=== PATIENT | male | born 1945 | race Caucasian/White ===

== ENCOUNTER 2017-10-15 17:06 | Emergency (ER) | payer MEDICARE, MEDICAID, SELFPAY ==
[2017-10-15 17:07] VITALS: BP 139/64; PULSE 53; RESP 20; TEMP 35.8; O2SAT 100; BMI 27.6
[2017-10-15 17:45] LABS: Absolute Lymphocyte Count 1.51 X10^3/ul (0.83-4.51); Absolute Neutrophil Count 7.9 X10^3/uL (2.0-7.7); Basophil# 0.03 X10^3/uL; Basophil% 0.3 % (0-1); Eosinophil# 0.04 X10^3/uL; Eosinophils% 0.4 % (0-5); Hematocrit 43.9 % (40-54); Hemoglobin 14.1 g/dl (13.0-16.5); Lymphocyte # 1.51 X10^3/ul (4.0); Lymphocyte % 14.9 % (19-41); Mean Corp Hgb Conc 32.1 g/gl (32-36); Mean Corpuscular Hgb 29.8 pg (27.0-32.0); Mean Corpuscular Volume 92.8 fL (80-94); Mean Platelet Vol. 12.8 fl (6.2-12.0); Monocyte# 0.68 X10^3/uL; Monocyte% 6.7 % (0-10); Neutrophil # 7.88 X10^3/uL (2.7-7.7); Neutrophil % 77.6 % (47-70); Platelet Count 157 K/mm3 (150-450); RBC Distribution Width CV 13.4 % (11.6-14.6); RBC Distribution Width SD 44.2 fl (35.1-43.9); Red Blood Count 4.73 M/mm3 (4.6-6.2); White Blood Count 10.2 K/mm3 (4.4-11.0)
[2017-10-15 17:48] LABS: Anion Gap 10 (5-15); BUN 33 mg/dL (7-18); BUN/Creat Ratio 17.8 RATIO (10-20); Calcium,Total 9.6 mg/dL (8.5-10.1); Chloride 108 mmol/L (98-107); Creatinine, Serum 1.85 mg/dL (0.70-1.30); EST Glomerular Filtration Rate 39 mL/min (>60); Est Glom Filt Rate - Afr Amer 47 mL/min (>60); Estimated Creatinine Clearance 34.01 ml/min; Glucose 110 mg/dL (74-106); Potassium 4.2 mmol/L (3.5-5.1); Sodium Level 143 mmol/L (136-145)
[2017-10-15 17:49] LABS: POSITIVE COUNT NO; POSITIVE DIFFERENTIAL NO; POSITIVE MORPHOLOGY NO
[2017-10-15 18:00] LABS: White Blood Cells 0 SEEN /hpf (0-5)
[2017-10-15 18:12] LABS: Color, Urine Yellow (Yellow); Glucose, Dipstick Normal (Normal); Leukocyte Esterase-Dipstick Negative /ul (Negative); Nitrite-Dipstick Negative (Negative); Occult Blood-Urine 10 /ul (Negative); Protein-Dipstick 15 mg/dl (Negative); Urine Bilirubin Dipstick Negative (Negative); Urine Clarity Clear (Clear); Urine Urobilinogen Normal (Normal)
[2017-10-15] MEDS: Ondansetron 4 MG/2 ML Vial IV (18:13)
[2017-10-15] MEDS: Morphine 4 MG/ML Syringe IV (18:13)
[2017-10-15 18:15] LABS: Ketone-Dipstick 150 mg/dl (Negative)
[2017-10-15 18:15] LABS: Lipase 295 U/L (73-393)
[2017-10-15 18:36] LABS: Bacteria RARE /hpf (None Seen); Mucous, Urine RARE /hpf (<or=2+); Red Blood Cells-Urine 0-5 SEEN /hpf (0-5); Squamous Epithelial Cells - UA 0-5 SEEN /hpf (0-5)
--- NOTE | 2017-10-15 19:13 | EKG12_ITS ---
Test Reason : ABD PAIN Blood Pressure : / mmHG Vent. Rate : 049 BPM Atrial Rate : 049 BPM P-R Int : 156 ms QRS Dur : 078 ms QT Int : 478 ms P-R-T Axes : 068 015 110 degrees QTc Int : 431 ms Sinus bradycardia Septal infarct , age undetermined Inferior infarct , age undetermined ST & T wave abnormality, consider lateral ischemia Abnormal ECG Confirmed by MAGDALENA LANZA, SUNIL ([id number]), online content editor KRISTEN LARKIN ([id number]) on 10/19/2017 2:00:39 PM Referred By: ARINA MAYA Confirmed By:SUNIL NICHOLS MD
[2017-10-15 19:29] LABS: AST(SGOT) 21 U/L (15-37); Alanine Aminotransfer ALT/SGPT 20 U/L (16-61); Albumin, Serum 4.5 g/dL (3.2-5.0); Alkaline Phosphatase 71 U/L (45-117); Bilirubin, Direct 0.13 mg/dL (0.00-0.30); Globulin 3.9 g/dL (2.2-4.2); Protein, Total 8.4 g/dL (6.4-8.2)
[2017-10-15] MEDS: proMETHazine 25 MG/ML Syringe 6.25 MG IV (19:48)
[2017-10-15 19:51] VITALS: BP 134/80; PULSE 60; RESP 16; O2SAT 94
--- NOTE | 2017-10-15 23:06 | ED.VISSUMM ---
- ER Visit Summary Date of Service: 10/15/17 Chief Complaint: Abdominal pain History of Present Illness: The patient is a 71 M who presents with right upper quadrant and epigastric abdominal pain that began today. Patient describes the pain as burning and pressure. Patient states the pain is worse with eating. Patient admits to some nausea and vomiting. Patient had 2 episodes of emesis of undigested food. Patient does admit to some watery diarrhea today as well. Denies any dysuria or hematuria. Patient denies any radiation of his pain. Patient denies any chest pain or shortness of breath. Patient denies any headaches. Physical Examination: Vital signs are stable. Patient is afebrile. Patient is in no acute distress. Oral mucosa is pink and moist. Neck is supple. Trachea is midline. There is no JVD or lymphadenopathy. Heart was regular rate and rhythm. Lungs are clear and equal bilateral. There is good respiratory effort noted. Abdomen is soft. There is tenderness over the upper abdomen slightly worse on the right. Bowel sounds are normal. There is no rebound or guarding noted. Cranial nerves II through XII are intact. There are no focal motor or sensory deficits noted. Test Results: CBC was within normal limits. Basic metabolic profile shows slightly elevated creatinine of 1.85 and a BUN of 33. This is chronic for the patient. Urinalysis was within normal limits. EKG showed sinus bradycardia with a rate of 49. There are no acute ST or T-wave changes noted. There is no change compared to previous EKG dated 12/30/2015. Emergency Department Course and Treatment: Patient was given a GI cocktail initially and had minimal relief. Patient was also given Zofran initially. Patient was given morphine and Phenergan after this. Patient was advised that his pain is likely from gastritis or early ulcer or possibly cholelithiasis. Patient was instructed to follow-up with his primary care physician in 3-5 days. Patient was given a prescription for a short course of [place]. Patient understood and was agreeable with the plan. All questions were answered. Disposition: Discharge home Impression: Upper abdominal pain This note was generated with [employer] dictation software. It may contain incorrect words, spelling, and punctuation that were not noted in review of the chart prior to signing ED Disposition - Plan for ED Patient: Disposition: Home or Assisted Living Chief Complaint: Abd Pain Diagnosis: Upper abdominal pain, unspecified Instructions: ED Abdominal Pain Unkn Cause Prescriptions: Hydrocodone Bitart/Apap 5-325 [[place] 5/325] 1 tab PO Q6H PRN PRN 3 Days #12 tab PRN Reason: Pain Referrals: Stef Houston MD [Primary Care Provider] -
[2017-10-15 23:25] VITALS: BP 150/91; PULSE 65; RESP 16
[2017-10-15] MEDS: Morphine 2 MG/ML Syringe IV (23:25)
[2017-10-15 23:55] VITALS: BP 151/82; PULSE 59; RESP 16
== END 2017-10-15 23:56 | disposition home or self-care (01) ==
PROVIDERS: Emergency Medicine; Emergency Provider Emergency Medicine; Family Provider Family Medicine; PCP Family Medicine
DX: R10.13 Epigastric pain (principal); R10.11 Right upper quadrant pain; R00.1 Bradycardia, unspecified; R11.2 Nausea with vomiting, unspecified; R19.7 Diarrhea, unspecified; I25.10 Atherosclerotic heart disease of native coronary artery without angina pectoris; K21.9 Gastro-esophageal reflux disease without esophagitis; Z95.1 Presence of aortocoronary bypass graft; Z79.899 Other long term (current) drug therapy
CPT/HCPCS: 80048; 80076; 81001; 83690; 84484; 85025; 93005; 96374; 96375; 96376; 99285; A4216; J2405

== ENCOUNTER 2021-04-12 11:29 | Emergency (ER) | payer MEDICARE, MEDICAID, SELFPAY ==
[2021-04-12 11:30] VITALS: BP 120/82; PULSE 83; RESP 16; TEMP 36.6; O2SAT 97; BMI 26.9
--- NOTE | 2021-04-12 12:27 | RAD_ITS ---
HISTORY: cough. TECHNIQUE: XR Chest 1 View. # of images incl. paperwork: 1. COMPARISON: 12/30/2015. FINDINGS: CARDIOMEDIASTINAL STRUCTURES: Cardiac silhouette not enlarged. Mediastinal contour unremarkable. Midline sternotomy again noted. LUNGS: Mild linear and patchy opacities in the mid to lower lungs. PLEURA: No pleural effusion or pneumothorax. OSSEOUS STRUCTURES: Degenerative change. RAD/Chest 1 View (Portable) IMPRESSION: Mild opacities in the periphery of the mid to lower lungs, concerning for atypical or viral infection. at 1345 Reported and signed by: Nanci Rutledge MD Electronically Signed: Nanci Rutledge MD at 13:43 EDT Tel , Service support ,
--- NOTE | 2021-04-12 12:31 | EDS_ITS ---
HPI History of Present Illness Chief Complaint: Cough Informant: patient Narrative Narrative: Patient presents with about 2 weeks of symptoms. He started with some nasal congestion. He then developed a cough that is been nonproductive. He has never had chest pain. His taste and smell are poor. His appetite is poor but no nausea vomiting. He has had some intermittent soft stools without blood. No abdominal pain. Slight myalgias. He states he is just not getting a lot better. He is not a smoker. He has not been checked for Covid. He has not been immunized against Covid. He states his is worse than him but he figured he get checked to. Nothing specifically makes his symptoms better and worse. PFSH PFSH Home Medications hydrocodone-acetaminophen 1 tab PO Q6H PRN PRN 3 Days #12 tab 10/15/17 [Rx Last Taken Unknown] omeprazole 20 mg PO DAILY 10/15/17 [History Last Taken Unknown] Allergy/AdvReac Type Severity Reaction Status Date / Time No Known Allergies Allergy Verified 04/12/21 11:30 Surgical History History of quadruple bypass Social History Smoking Status: Never smoker ROS ROS ED Constitutional Constitutional ED: Reports chills and subjective Eyes Eyes: Denies blurry vision or change in vision ENT ENT ED: Reports rhinorrhea; Denies ear pain or sore throat Cardiovascular Cardiovascular: Denies chest pain or palpitations Respiratory/Chest Respiratory/Chest: Reports cough and dyspnea; Denies sputum Gastrointestinal Gastrointestinal: Reports diarrhea; Denies abdominal pain, nausea or vomiting Genitourinary Genitourinary ED: Denies dysuria or hematuria Musculoskeletal Musculoskeletal: Reports myalgias; Denies arthralgias, back pain or neck pain Integumentary Denies rash Neurologic Neurologic: Denies headache(s) Psychiatric Psychiatric: Denies anxiety or depression Endocrine Endocrinology: Denies polydipsia or polyuria Allergic/Immunologic Allergic/Immunologic ED: Denies urticaria EXAM Physical Exam Const Vital Signs: 04/12/21 11:30 04/12/21 12:45 04/12/21 14:12 Temperature 98 F 100.4 F H Temperature Source Temporal Oral Pulse Rate 83 80 75 Respiratory Rate 16 26 H Respiratory Effort Short of Breath Respiratory Depth Normal Respiratory Pattern Tachypnea Blood Pressure 120/82 H 123/86 H 131/83 H Blood Pressure Mean 94 98 99 Pulse Ox 97 95 96 Oxygen Delivery Method Room Air Room Air Room Air Positive well nourished and well developed General Appearance ED: well developed and NAD HEENT Reports moist mucous membranes Negative for trauma Eyes General Eye ED: Negative for pale conjunctiva or scleral icterus Neck no lymphadenopathy and no JVD Resp normal respiratory effort and clear to auscultation bilaterally Effort and Inspection: Negative for pain with movement Auscultation: Negative for rales, rhonchi or wheezes Cardio regular rate, regular rhythm and no murmurs GI normal to inspection, nondistended, normoactive bowel sounds and non-tender Palpation: soft Back/Spine no CVA tenderness Extremity normal to inspection General Extremety ED: Negative for edema General Extremity: Negative for edema Neuro oriented x3 Sensorium / Orientation: alert Psych mental status grossly normal Skin no rashes or lesions noted and no wounds MDM MDM MDM Narrative Medical decision making narrative: Patient's labs show low white count. This is common with Covid. His Covid is positive. He does have mild elevation in creatinine 1.9. Lactate is normal. Liver function tests are unremarkable. X- ray is consistent with some Covid. However the patient is not hypoxic including when he walked. His mild elevation of creatinine is really at his baseline. I think the patient can go home. He has symptoms about 14 days now. He is doing well. We did discuss reasons to follow-up. He has been having symptoms too long for monoclonal therapy. Lab Data Attestation: I reviewed the patient's lab results. Labs: Laboratory Results - last 24 hr 04/12/21 04/12/21 04/12/21 12:35 12:35 12:35 WBC 3.2 L RBC 4.80 Hgb 14.4 Hct 44.7 MCV 93.1 MCH 30.0 MCHC 32.2 RDW Std Deviation 46.0 H RDW Coeff of Rc 13.3 Plt Count 93 L MPV 11.5 Immature Gran % (Auto) 0.300 Neut % (Auto) 63.9 Lymph % (Auto) 25.3 [place] % (Auto) 9.9 Eos % (Auto) 0.3 Baso % (Auto) 0.3 Absolute Neuts (auto) 2.1 Absolute Lymphs (auto) 0.82 L Nucleated RBC % 0 Platelet Estimate MOD DEC Sodium 135 L Potassium 4.7 Chloride 98 Carbon Dioxide 30.0 Anion Gap 7 BUN 29 H Creatinine 1.90 H Estim Creat Clear Calc 31.25 Est GFR (MDRD) Af Amer 45 L Est GFR (MDRD) Non-Af 37 L BUN/Creatinine Ratio 15.3 Glucose 96 Lactic Acid 0.9 Calcium 8.6 Total Bilirubin 0.40 AST 37 ALT 22 Alkaline Phosphatase 46 Troponin I High Sens 29 Total Protein 7.3 Albumin 3.2 Globulin 4.1 Albumin/Globulin Ratio 0.8 L Radiography Diagnostic Testing: Clinical Impression(s) from Imaging Studies Chest X-Ray 04/12/21 12:27 IMPRESSION: Mild opacities in the periphery of the mid to lower lungs, concerning for atypical or viral infection. at 1345 Reported and signed by: Nanci Rutledge MD Electronically Signed: Nanci Rutledge MD at 13:43 EDT Tel , Service support , Discharge Plan Triage Chief Complaint: Cough ED Provider: Aleksander Gil Dx/Rx/DC Orders Clinical Impression: Pneumonia due to 2019 novel coronavirus Instructions: Caring for Someone Who Has COVID-19 Prescriptions: No Action omeprazole 20 MG capsule 20 mg PO DAILY RF: 0 hydrocodone-acetaminophen 1 TABLET tablet 1 tab PO Q6H PRN PRN (Reason: Pain) 3 Days Qty: 12 RF: 0 Primary Care Provider: Stef Houston Referrals: Stef Houston MD [Primary Care Provider] - 3-5 Days if not improving Disposition Disposition: Home, Self Care Discharge Date/Time: 04/12/21 14:46
[2021-04-12 12:45] VITALS: BP 123/86; PULSE 80; O2SAT 95
[2021-04-12 12:45] LABS: Absolute Lymphocyte Count 0.82 X10^3/uL (0.83-4.51); Absolute Neutrophil Count 2.1 X10^3/uL (2.0-7.7); Basophil# 0.01 X10^3/uL; Basophil% 0.3 % (0-1); Eosinophil# 0.01 X10^3/uL; Eosinophils% 0.3 % (0-5); Hematocrit 44.7 % (40-54); Hemoglobin 14.4 g/dL (13.0-16.5); Lymphocyte # 0.82 X10^3/ul (0.83-4.51); Lymphocyte % 25.3 % (19-41); Mean Corp Hgb Conc 32.2 g/dL (32-36); Mean Corpuscular Volume 93.1 fL (80-94); Mean Platelet Vol. 11.5 fl (6.2-12.0); Monocyte# 0.32 X10^3/uL; Monocyte% 9.9 % (0-10); NRBC Flagged by Analyzer 0 % (0-5); Neutrophil # 2.07 X10^3/uL (2.7-7.7); Neutrophil % 63.9 % (47-70); POSITIVE COUNT YES; Platelet Count 93 K/mm3 (150-450); RBC Distribution Width CV 13.3 % (11.6-14.6); White Blood Count 3.2 K/mm3 (4.4-11.0)
[2021-04-12 12:47] LABS: Differential Indicated SCAN CRITERIA MET
[2021-04-12 13:05] LABS: ALB/GLOB Ratio 0.8 RATIO (0.9-2.4); AST(SGOT) 37 U/L (15-37); Alanine Aminotransfer ALT/SGPT 22 U/L (16-61); Albumin, Serum 3.2 g/dL (3.2-5.0); Alkaline Phosphatase 46 U/L (45-117); Anion Gap 7 (5-15); BUN 29 mg/dL (7-18); BUN/Creat Ratio 15.3 RATIO (10-20); Calcium,Total 8.6 mg/dL (8.5-10.1); Chloride 98 mmol/L (98-107); EST Glomerular Filtration Rate 37 mL/min (>60); Est Glom Filt Rate - Afr Amer 45 mL/min (>60); Estimated Creatinine Clearance 31.25 ml/min; Globulin 4.1 g/dL (2.2-4.2); Glucose 96 mg/dL (74-106); Potassium 4.7 mmol/L (3.5-5.1); Protein, Total 7.3 g/dL (6.4-8.2); Sodium Level 135 mmol/L (136-145); Troponin-I HS 29 pg/mL (3.0-78.0)
[2021-04-12 13:08] LABS: Lactic Acid 0.9 mmol/L (0.4-1.9)
[2021-04-12 13:11] LABS: Platelet Estimate MOD DEC (ADEQ)
[2021-04-12 14:12] VITALS: BP 131/83; PULSE 75; RESP 26; TEMP 38; O2SAT 95; O2SAT 96
[2021-04-12] MEDS: Acetaminophen 325 MG Tablet 650 MG PO (14:41)
== END 2021-04-12 14:46 | disposition home or self-care (01) ==
PROVIDERS: Emergency Provider Emergency Medicine; PCP Family Medicine
DX: U07.1 COVID-19 (principal); J12.82 Pneumonia due to coronavirus disease 2019; Z95.1 Presence of aortocoronary bypass graft
CPT/HCPCS: 71045; 80053; 83605; 84484; 85025; 87426; 99284; A4216

== ENCOUNTER 2023-09-16 09:06 | Emergency (ER) | payer MEDICARE, MEDICAID, SELFPAY ==
[2023-09-16 09:07] VITALS: BP 152/104; PULSE 81; RESP 14; TEMP 37.2; O2SAT 96; BMI 28.4
--- NOTE | 2023-09-16 09:14 | EX.ED.VIS.UR ---
HPI HPI - URI History of Present Illness Chief Complaint: Cough Informant: patient Onset/Context/Timing Onset: Weeks (2-3) Context: Gradual Onset Timing: Continuous Quality: Weakness Location: Generalized Worsened by: - (Exertion) Relieved by: - (Nothing) Associated Symptoms Associated Symptoms: Positive for Nasal Congestion, Headache and Productive Cough; Negative for Sinus Pressure, Myalgias, Nausea, Vomiting, Diarrhea, Shortness of Breath, Chest Pain, Nonproductive cough or Hemoptysis Narrative Narrative: Patient presents with generalized weakness, and cough that has been constant for the past 2 to 3 weeks. Patient states he went to the urgent care and had a chest x-ray done. Patient states he was given a prescription for doxycycline. Patient states he took 1 dose and had a reaction to it. Patient states it gave him a weird feeling . Patient states he stopped taking it after that. Patient admits to a cough with some yellowish sputum production. Patient also admits to headache and some nasal congestion. Patient denies any fevers or chills. Patient states his weakness is worse with any exertion. Patient admits to some shortness of breath with coughing. Patient denies any chest pain. ROS ROS ED Constitutional Constitutional ED: Denies chills or fever(s) Eyes Eyes: Denies blurry vision or change in vision ENT ENT ED: Reports rhinorrhea; Denies sore throat Cardiovascular Cardiovascular: Denies chest pain or palpitations Respiratory/Chest Respiratory/Chest: Reports cough and dyspnea Gastrointestinal Gastrointestinal: Denies nausea or vomiting Genitourinary Genitourinary ED: Denies dysuria or hematuria Musculoskeletal Musculoskeletal: Denies back pain or neck pain Integumentary Denies abscess or rash Neurologic Neurologic: Reports headache(s) and weakness Allergic/Immunologic Allergic/Immunologic ED: Denies mouth swelling or urticaria [facility] Medical History (Updated 09/16/23 @ 12:[address] Mj Ralph DO) Benign essential hypertension CAD (coronary artery disease) Home Medications NK 09/16/23 [History Last Taken Unknown] Allergy/AdvReac Type Severity Reaction Status Date / Time No Known Allergies Allergy Verified 09/16/23 09:07 Surgical History (Updated 09/16/23 @ 10:[address] Mj Ralph DO) History of coronary artery stent placement History of quadruple bypass Hx of CABG Social History Smoking Status: Never smoker EXAM Physical Exam Const Vital Signs: 09/16/23 09:07 09/16/23 09:33 09/16/23 10:21 Temperature 98.9 F Temperature Source Temporal Pulse Rate 81 70 Respiratory Rate 14 16 Respiratory Effort Normal Non-Labored Respiratory Depth Normal Respiratory Pattern Normal Normal Blood Pressure 152/104 H Blood Pressure Mean 120 Pulse Ox 96 Oxygen Delivery Method Room Air 09/16/23 11:21 Temperature 98.2 F Temperature Source Pulse Rate 72 Respiratory Rate 16 Respiratory Effort Respiratory Depth Respiratory Pattern Blood Pressure 149/90 H Blood Pressure Mean 109 Pulse Ox 96 Oxygen Delivery Method Positive well nourished and well developed General Appearance ED: well developed and NAD HEENT Reports moist mucous membranes Neck supple, no meningeal signs and no JVD Resp normal respiratory effort and clear to auscultation bilaterally Cardio Rate: regular rate GI non-tender and non-distended Palpation: soft Neuro oriented x3, CN's II-XII intact bilaterally and no sensory deficits noted Sensorium / Orientation: alert Motor Exam: strength 5/5 throughout Psych mental status grossly normal MDM MDM MDM Narrative Medical decision making narrative: Differential diagnosis includes pneumonia, bronchitis, viral upper respiratory infection, and electrolyte abnormality. CBC will be obtained to assess for leukocytosis and anemia. Basic metabolic profile will be obtained to assess for electrolyte abnormality and renal function. COVID-19, influenza, and RSV PCR will be obtained to assess for viral infection. Chest x-ray will be obtained to assess for pneumonia. Lab Data Attestation: I reviewed the patient's lab results. Lab results narrative: CBC was reviewed. There is a slight anemia with a hemoglobin of 12.0 and hematocrit 38.0. Basic metabolic profile was reviewed. BUN was slightly elevated at 36 and creatinine was slightly elevated at 1.76. These are consistent with prior results. COVID-19 PCR was reviewed and was negative. Influenza PCR was reviewed and was negative for influenza A and influenza B. RSV PCR was reviewed and was negative. Labs: Laboratory Results - last 24 hr 09/16/23 10:20 WBC 7.6 RBC 4.16 L Hgb 12.0 L Hct 38.0 L MCV 91.3 MCH 28.8 MCHC 31.6 L RDW Std Deviation 48.6 H RDW Coeff of Rc 14.8 H Plt Count 194 MPV 10.9 Immature Gran % (Auto) 0.400 Neut % (Auto) 75.3 H Lymph % (Auto) 12.3 L [place] % (Auto) 7.1 Eos % (Auto) 4.1 Baso % (Auto) 0.8 Absolute Neuts (auto) 5.7 Absolute Lymphs (auto) 0.93 Nucleated RBC % 0 Sodium 141 Potassium 4.0 Chloride 108 H Carbon Dioxide 26.0 Anion Gap 7 BUN 36 H Creatinine 1.76 H Estim Creat Clear Calc 36.05 Est GFR (MDRD) Af Amer 49 L Est GFR (MDRD) Non-Af 40 L BUN/Creatinine Ratio 20.5 H Glucose 104 Calcium 8.9 Radiography Chest X-Ray - ED: 2 View, Read by ED Physician, Read by Radiologist, No Acute Disease, Cardiomegaly and No Infiltrates Diagnostic Testing: Clinical Impression(s) from Imaging Studies Chest X-Ray 09/16/23 10:25 IMPRESSION: Cardiomegaly. Prior CABG. No acute abnormality is seen. Electronically Signed: Jarett Oates MD at 10:53 EDT , Portable 1 view chest x-ray was obtained. On my independent interpretation, lung patel are clear. There is cardiomegaly noted. Bony thorax is normal. There is no acute process noted. Radiologist also interpreted the x-ray and agrees. Treatment and Re-Evaluation Narrative: Patient was given a DuoNeb aerosol here. Patient was advised of his findings. Patient was advised that this could be a viral illness. Patient was instructed to follow-up with his primary care physician for further evaluation. Patient understood and was agreeable with the plan. All questions were answered. Discharge Plan Triage Chief Complaint: Cough ED Provider: Mj Ralph Dx/Rx/DC Orders Clinical Impression: Viral illness, Benign essential hypertension Instructions: ED Viral Syndrome (Adult) Prescriptions: No Action NK Primary Care Provider: Guillaume Aparicio Referrals: Guillaume Aparicio MD [Primary Care Provider] - 5-7 Days Stef Houston MD [Non-Staff] - 5-7 Days Disposition Disposition: Home, Self Care
[2023-09-16] MEDS: Ipratropium/Albuterol Sulfate 3 ML AMPUL.NEB INHALATION (10:20)
[2023-09-16 10:21] VITALS: PULSE 70; RESP 16
--- NOTE | 2023-09-16 10:25 | RAD_ITS ---
STUDY: X-RAY CHEST REASON FOR EXAM: Male, 77 years old. Cough TECHNIQUE: PA and lateral views of the chest. COMPARISON: Comparison is made with prior study dated April 12, 2021. FINDINGS: EKG electrodes are seen. The lungs are clear and expanded. There is no demonstrated pleural abnormality. Sternal cerclage wires and vascular clips are present from a prior sternotomy and coronary artery bypass graft procedure (CABG). Cardiomegaly. Normal mediastinum and titus. Normal visualized pulmonary arteries. There is atherosclerotic tortuosity of the aortic arch and descending thoracic aorta. There is demineralization of the osseous structures. Normal visualized ribs, clavicles, and shoulders. There is no demonstrated abnormality of the visualized soft tissue structures of the upper abdomen. RAD/Chest PA and Lateral IMPRESSION: Cardiomegaly. Prior CABG. No acute abnormality is seen. Electronically Signed: Jarett Oates MD at 10:53 EDT ,
[2023-09-16 10:33] LABS: Absolute Lymphocyte Count 0.93 X10^3/uL (0.83-4.51); Absolute Neutrophil Count 5.7 X10^3/uL (2.0-7.7); Basophil# 0.06 X10^3/uL; Basophil% 0.8 % (0-1); Eosinophil# 0.31 X10^3/uL; Eosinophils% 4.1 % (0-5); Lymphocyte # 0.93 X10^3/ul (0.83-4.51); Lymphocyte % 12.3 % (19-41); Mean Corp Hgb Conc 31.6 g/dL (32-36); Mean Corpuscular Hgb 28.8 pg (27.0-32.0); Mean Corpuscular Volume 91.3 fL (80-94); Mean Platelet Vol. 10.9 fl (6.2-12.0); Monocyte# 0.54 X10^3/uL; Monocyte% 7.1 % (0-10); NRBC Flagged by Analyzer 0 % (0-5); Neutrophil # 5.71 X10^3/uL (2.7-7.7); Neutrophil % 75.3 % (47-70); Platelet Count 194 K/mm3 (150-450); RBC Distribution Width CV 14.8 % (11.6-14.6); RBC Distribution Width SD 48.6 fl (35.1-43.9); Red Blood Count 4.16 M/mm3 (4.6-6.2); White Blood Count 7.6 K/mm3 (4.4-11.0)
[2023-09-16 10:55] LABS: Anion Gap 7 (5-15); BUN 36 mg/dL (7-18); BUN/Creat Ratio 20.5 RATIO (10-20); Calcium,Total 8.9 mg/dL (8.5-10.1); Chloride 108 mmol/L (98-107); Creatinine, Serum 1.76 mg/dL (0.70-1.30); EST Glomerular Filtration Rate 40 mL/min (>60); Est Glom Filt Rate - Afr Amer 49 mL/min (>60); Estimated Creatinine Clearance 36.05 ml/min; Glucose 104 mg/dL (74-106); Sodium Level 141 mmol/L (136-145)
[2023-09-16 11:21] VITALS: BP 149/90; PULSE 72; RESP 16; TEMP 36.8; O2SAT 96
== END 2023-09-16 12:23 | disposition home or self-care (01) ==
PROVIDERS: Emergency Provider Emergency Medicine; PCP Family Medicine; Visit Provider Emergency Medicine
DX: B34.9 Viral infection, unspecified (principal); I10 Essential (primary) hypertension; R06.02 Shortness of breath
CPT/HCPCS: 71046; 80048; 85025; 87631; 94640; 99283; A4216

== ENCOUNTER 2025-06-20 14:15 | Inpatient (IN) | payer MEDICARE, MEDICAID, SELFPAY ==
[2025-06-20] VITALS (15 sets, daily range): BP systolic 122–152; BP diastolic 83–106; PULSE 55–75; RESP 16–24; TEMP 35.9–36.7; O2SAT 94–100; BMI 29.7
--- NOTE | 2025-06-20 15:29 | EX.ED.DYSGE1 ---
HPI History of Present Illness Chief Complaint: Abd Pain Detail of Chief Complaint: Right inguinal pain Informant: patient and spouse/S.O. Onset/Context/Timing Onset: Today and Hours Context: Sudden Onset Timing: Continuous Quality: Pain Location: Right inguinal Current Severity: Moderate Maximum Severity: Severe Worsened by: Movement and palpation Relieved by: Nothing Associated Symptoms Associated Symptoms: No constitutional symptoms. No nausea or vomiting. Constipation Narrative Narrative: Patient is a 79-year-old male. He has history coronary disease status post multivessel bypass surgery 2011. He had a acute ST elevation LA in 2016 transferred to [place]. He apparently had another LA in the 20s based on review of records that I was able to obtain. There is no prior echo report. Patient states he was told by his reimbursement analyst it is up to him whether he wants surgery. He was told by his surgeon, Dr. Cortez Velazquez there is risk because of enlarged heart. Patient denies fever, chills night sweats. Patient denies dysuria, frequency, urgency or hematuria. Patient was seen by practitioner with Dr. Teran's office today for routine exam. After he got home he developed severe pain. He states he is unable to push the hernia in. He is normally able to reduce it. He has no complaints. Prior similar symptoms: No Recent Illness/Hospitalization: No PFSH PFSH Medical History Benign essential hypertension CAD (coronary artery disease) Home Medications ?Medication ?Instructions ?Recorded ?Last Taken ?Type furosemide 20 mg tablet 20 mg PO BID 06/20/25 06/20/25 History Allergy/AdvReac Type Severity Reaction Status Date / Time No Known Allergies Allergy Verified 06/20/25 14:17 Family History no significant family his Surgical History History of quadruple bypass History of coronary artery stent placement Hx of CABG Social History (Updated 06/20/25 @ 15:[address] Kirk Espinosa MD) household members: spouse Smoking Status: Never smoker ROS ROS ED Constitutional Constitutional ED: Denies chills, fever(s), subjective, sweats or weight loss Eyes Eyes: Denies blurry vision or change in vision Cardiovascular Cardiovascular: Denies chest pain or palpitations Respiratory/Chest Respiratory/Chest: Denies cough, dyspnea or dyspnea on exertion Gastrointestinal Gastrointestinal: Reports abdominal pain and constipation; Denies diarrhea, melena, nausea or vomiting Genitourinary Genitourinary ED: Denies dysuria, hematuria or urinary frequency Musculoskeletal Musculoskeletal: Denies arthralgias, back pain or myalgias Integumentary Denies rash Neurologic Neurologic: Denies headache(s) or paresthesias Hematologic/Lymphatic Hematologic/Lymphatic: Reports systems reviewed and no addt'l complaints, except as documented EXAM Physical Exam Const Vital Signs: 06/20/25 14:16 06/20/25 15:48 Temperature 97.4 F L 97.4 F L Temperature Source Temporal Pulse Rate 74 61 Respiratory Rate 24 H 24 H Blood Pressure 134/83 H 122/90 H Blood Pressure Mean 100 100 Pulse Ox 96 96 Oxygen Delivery Method Room Air Positive well nourished and well developed General Appearance ED: well developed and pallor HEENT Reports dry mucous membranes HEENT Narrative: Head is atraumatic normocephalic. Ears normal. Nares patent. Mouth ED: Yes dry mucous membranes Mouth: dry mucous membranes Eyes PERRL and EOMs intact bilaterally General Eye ED: Negative for pale conjunctiva or scleral icterus Neck no lymphadenopathy, supple and no JVD Chest Wall palpation of chest normal; Negative for inspection of chest normal Chest Narrative: Well-healed median sternotomy scar. Resp normal respiratory effort and clear to auscultation bilaterally Cardio regular rate, regular rhythm, S1 normal heart sound, S2 normal heart sound and no murmurs GI non-distended and no masses; Negative for normal to inspection, nondistended, normoactive bowel sounds, non-tender or hepatosplenomegaly GI Narrative: Patient has a large right inguinal hernia with bowel content in the scrotum. Attempt to reduce this caused him significant pain. Since has been out for hours no further attempt was made. Narrative: exam unremarkable. As noted above there is gastric content in the scrotum due to a hernia. In my opinion it is incarcerated. Extremity normal to inspection Neuro oriented x3 and CN's II-XII intact bilaterally Sensorium / Orientation: alert Psych mental status grossly normal Skin no rashes or lesions noted, no wounds and No skin turgor normal General Skin Exam: pallor; Negative for jaundice MDM MDM MDM Narrative Medical decision making narrative: Patient with a right inguinal hernia patient has significant discomfort and been out for hours no further attempt was made because of concern there may be bowel ischemia. Appropriate blood work was ordered. He was ordered for Zofran for nausea and Dilaudid for his pain. Case was discussed with Dr. Donaldson. He will attempt to reduce it. Did ask regarding imaging if you would like with IV contrast or IV and p.o. Spoke with the nurse practitioner at the [facility] who saw him on behalf of Dr. Teran. Patient has an ejection fracture of 31%. He had an echo September of this year. He has got global hypokinesis. He had an exacerbation of CHF 1 month ago. History & Record Review Discussion w/independent historian: Significant other Additional record(s) reviewed:: Prior ED visit (Minimal records. Mainly related to cardiac presentations. Documented HPI narrative) and Prior labs Lab Data Attestation: I reviewed the patient's lab results. Lab results narrative: CBC is unremarkable. Labs: Laboratory Results - last 24 hr 06/20/25 14:45 WBC 4.8 RBC 4.48 L Hgb 13.6 Hct 42.7 MCV 95.3 H MCH 30.4 MCHC 31.9 L RDW Std Deviation 51.3 H RDW Coeff of Rc 14.7 H Plt Count 117 L MPV 11.5 Immature Gran % (Auto) 0.200 Neut % (Auto) 70.0 Lymph % (Auto) 17.4 L Whitley % (Auto) 10.3 H Eos % (Auto) 1.3 Baso % (Auto) 0.8 Absolute Neuts (auto) 3.3 Absolute Lymphs (auto) 0.83 Nucleated RBC % 0 Management Discussion w/another healthcare provider: Graduation Coach (Documented medical portion of the medical record.) and PCP (Documented MDM portion of the medical record) Treatment and Re-Evaluation :: Patient was seen by Dr. Donaldson. Plan is OR. Patient received 4.5 g of Zosyn. Patient is aware of the risks. Critical Care Time Critical Care Time: Yes Critical care time (excluding procedures): 30-74 minutes (21), Including time spent: (History, physical, documentation, review of prior records, discussion with PCP at [facility], discussion with surgeon,), Discussing w/Patient &/or Family/Public Relations Manager (Informed patient he has an emergent condition requiring operative intervention. He understands the risk.), Discussing w/Consultants (PCP and general surgery.), Arranging Admission or Transfer and Performing Direct Patient Care at Bedside (Attempt to reduce right inguinal hernia,) Discharge Plan Dx/Rx/DC Orders Clinical Impression: Incarcerated right inguinal hernia, CAD (coronary artery disease), Benign essential hypertension, History of coronary artery stent placement, History of chronic CHF, Tachypnea Disposition Disposition: Acute Care Hospital [facility]
[2025-06-20 15:32] LABS: Hematocrit 42.7 % (40-54); Hemoglobin 13.6 g/dL (13.0-16.5); Immature Granulocytes Count 0.010 X10^3/uL (0.0-0.0); Mean Corp Hgb Conc 31.9 g/dL (32-36); Mean Corpuscular Volume 95.3 fL (80-94); Mean Platelet Vol. 11.5 fl (6.2-12.0); NRBC Flagged by Analyzer 0 % (0-5); Platelet Count 117 K/mm3 (150-450); RBC Distribution Width CV 14.7 % (11.6-14.6); RBC Distribution Width SD 51.3 fl (35.1-43.9); Red Blood Count 4.48 M/mm3 (4.6-6.2); White Blood Count 4.8 K/mm3 (4.4-11.0)
[2025-06-20 16:07] LABS: AST(SGOT) 28 U/L (<=37); Alanine Aminotransfer ALT/SGPT 22 U/L (<=46); Albumin, Serum 4.0 g/dL (3.4-4.8); Alkaline Phosphatase 76 U/L (40-129); Anion Gap 9 (5-15); BUN 32 mg/dL (4-19); BUN/Creat Ratio 17.9 RATIO (10-20); Calcium,Total 9.3 mg/dL (7.6-11.0); Carbon Dioxide 28.2 mmol/L (21.0-32.0); Chloride 102 mmol/L (98-108); Estimated Creatinine Clearance 31.72 ml/min (50-250); Globulin 3.1 g/dL (2.2-4.2); Glucose 129 mg/dL (70-99); Potassium 4.6 mmol/L (3.3-5.1)
--- NOTE | 2025-06-20 16:08 | PCM.HP.STD ---
HPI - General HPI Narrative EMBER MCCORMICK, is a 79 M who presents with painful right inguinal hernia. Patient reports he has had a hernia for several years. He has not had a repair due to his heart. He says this morning and started becoming painful and he is unable to push it back in. He is very tender. He says this has been happening since this morning. [facility] Medical History Benign essential hypertension CAD (coronary artery disease) Home Medications ?Medication ?Instructions ?Recorded ?Last Taken ?Type furosemide 20 mg tablet 20 mg PO BID 06/20/25 06/20/25 History Allergy/AdvReac Type Severity Reaction Status Date / Time No Known Allergies Allergy Verified 06/20/25 14:17 Family History no significant family his Surgical History History of quadruple bypass History of coronary artery stent placement Hx of CABG Social History (Updated 06/20/25 @ 15:[address] Kirk Espinosa MD) household members: spouse Smoking Status: Never smoker Patient's Goals Of Care . What would you like to achieve or improve as a result of your hospital stay?: no Vital Signs Vital Signs Vital Signs: 06/20/25 14:16 06/20/25 15:48 Temperature 97.4 F L 97.4 F L Temperature Source Temporal Pulse Rate 74 61 Respiratory Rate 24 H 24 H Blood Pressure 134/83 H 122/90 H Blood Pressure Mean 100 100 Pulse Ox 96 96 Oxygen Delivery Method Room Air Weight Weight: 167 lb 8 oz Body Mass Index (BMI) 29.7 Physical Exam Const oriented x3 and no apparent distress Resp normal respiratory effort GI soft to palpation and non-tender GI Narrative: Painful swollen right inguinal hernia with no skin changes. Unable to reduce. Results Lab / Micro Data 06/20/25 14:45 06/20/25 14:45 Labs: Laboratory Results - last 24 hr 06/20/25 14:45: WBC 4.8, RBC 4.48 L, Hgb 13.6, Hct 42.7, MCV 95.3 H, MCH 30.4, MCHC 31.9 L, RDW Std Deviation 51.3 H, RDW Coeff of Rc 14.7 H, Plt Count 117 L, MPV 11.5, Immature Gran % (Auto) 0.200, Neut % (Auto) 70.0, Lymph % (Auto) 17.4 L, [place] % (Auto) 10.3 H, Eos % (Auto) 1.3, Baso % (Auto) 0.8, Absolute Neuts (auto) 3.3, Absolute Lymphs (auto) 0.83, Nucleated RBC % 0, Sodium 139, Potassium 4.6, Chloride 102, Carbon Dioxide 28.2, Anion Gap 9, BUN 32 H, Creatinine 1.78 H, Estim Creat Clear Calc 31.72 L, Est GFR (MDRD) Non-Af 39 L, BUN/Creatinine Ratio 17.9, Glucose 129 H, Calcium 9.3, Total Bilirubin 0.42, AST 28, ALT 22, Alkaline Phosphatase 76, Total Protein 7.1, Albumin 4.0, Globulin 3.1, Albumin/Globulin Ratio 1.3 Assessment & Plan Assessment/Plan (1) Incarcerated right inguinal hernia: PLAN: The patient has an incarcerated right inguinal hernia containing bowel. I am unable to reduce it due to pain. The patient had been offered elective hernia repair in the past but was told that his heart was not in good enough shape. At this time it is an emergency. The patient's last ejection fraction was 30% and he does have CHF. I discussed possibilities for repair. I will get him into surgery and have general anesthesia induced and then try to reduce the hernia. If I am able to reduce the hernia I will robotically repair of the right inguinal hernia. If I am unable to reduce the hernia I will perform an open right inguinal hernia repair and reduce the contents from the outside. If any of the bowel appears ischemic I will have to perform a laparotomy and bowel resection. I discussed this with him in detail as well as the risks of bleeding, infection, injury to other organ such as the bowel, bladder, ureter or blood supply to the testicle. Patient understands the risks and is 1 to proceed. I also discussed placing mesh. Darnell Donaldson MD Pager: [facility] [address] [place] [address], [address] [place] [address] Office:
--- NOTE | 2025-06-20 16:16 | NURSING ---
brought to [facility] from ER, oriented to surgery and antibiotic started
[2025-06-20] MEDS: 0.9% Normal Saline (1000mL) 1,000 ML 15 ML IV (16:17)
[2025-06-20] MEDS: Piperacil/Tazobactam 4.5 GM in 0.9% Normal Saline (100mL MB+) 100 ML IV (16:17)
--- NOTE | 2025-06-20 16:20 | PCM.PRE.AN2 ---
ASA Classification* ASA Classification ASA Classification: 4 and E Assessment & Plan Anesthesia* Anesthesia Assessment Anesthesia Assessment: Discussed sedation and/or anesthesia options, risks, benefits, and alternatives with patient/parents/legal guardian/POA. Questions invited. The patient/parents/legal guardian/POA seems to understand and agrees to proceed with anesthesia plan. Reviewed the physical assessment, medical history, allergy history and patient home medications list prior to surgery/procedure/anesthetic and documented any changes. Performed airway and anesthesia risk assessments. Anesthesia Type Anesthesia Type: General History Source History Obtained from:: Patient and Chart Anesthesia Focused Assessment* Temperature: 96.6 F Pulse Rate: 55 Blood Pressure: 127/86 Respiratory Rate: 24 Pulse Ox: 99 Oxygen Delivery Method: Room Air Airway Assessment Mouth opens: >3 cm Mallampati Score: III Teeth Condition: Dentures (Upper dentures are out.) and Missing (Patient has several missing teeth on the bottom. Rest are tight.) Neck Range of motion (ROM): Limited ROM (Somewhat Decreased) Labs Anesthesia Preop lab: CBC WBC, (4.4-11.0) 4.8 K/mm3 Today, 14:45 RBC, (4.6-6.2) 4.48 M/mm3 L Today, 14:45 Hgb, (13.0-16.5) 13.6 g/dL Today, 14:45 Hct, (40-54) 42.7 % Today, 14:45 Plt Count, (150-450) 117 K/mm3 L Today, 14:45 CHEMISTRY Potassium, (3.3-5.1) 4.6 mmol/L Today, 14:45 Sodium, (133-145) 139 mmol/L Today, 14:45 BUN, (4-19) 32 mg/dL H Today, 14:45 Creatinine, (0.70-1.20) 1.78 mg/dL H Today, 14:45 Glucose, (70-99) 129 mg/dL H Today, 14:45 COAG Pre-Assessment Diagnosis/Proposed Procedure Planned Operative Procedure(s): Exploratory laparotomy versus robotic laparoscopy. Anesthesia History Anesthesia History - geotechnical intern: Anesthesia History - geotechnical intern Hx Hospitalization Any Problems With Anesthesia Cholinesterase deficiency You/Your Family Experience fever (hyperthermia) with Relationship Recent Exposure to Contagious Disease Does patient have nerve stimulator Patient instructed to have device shut off --Does patient have Pacemaker or ICD? When Was Last Pacemaker Check QUESTION #4 FULL TEXT: You/Your Family Experience fever (hyperthermia) with Anesthesia Last Oral Intake Last Oral intake: Last Oral Intake NPO since 11:30 Meds taken in AM with sips of water? Meds patient instructed to take am of surgery Any additional information?: Yes Meds taken in AM with sips of water?: Yes Meds patient instructed to take am of surgery: Tylenol PONV PONV - geotechnical intern: PONV - geotechnical intern Female HX of Motion Sickness HX of N/V After Surgery Non-Smoker Duration of Surgery greater than 60 minutes Number of Risk Factors PONV Score Height & Weight Height & Weight: Anesthesia: Height & Weight Height 5 ft 3 in 06/20/25 14:16 Weight: 75.977 kg 06/20/25 15:41 Body Mass Index (BMI) 29.7 06/20/25 15:41 Respiratory Assessment Respiratory Assessment - geotechnical intern: Respiratory Tract Infection Hx - geotechnical intern Hx Respiratory Tract Infection No STOP Sleep Apnea STOP Sleep Apnea - geotechnical intern: STOP Sleep Apnea - geotechnical intern Hx Hypertension No 10/15/17 17:35 Hx Sleep Apnea No 10/15/17 17:35 CPAP BIPAP Do you snore loudly (louder than talking or can be heard Do you often feel tired/ fatigued/ sleepy during daytime? Has anyone observed you stop breathing during sleep? STOP Results QUESTION #5 FULL TEXT : Do you snore loudly (louder than talking or can be heard through closed doors)? Tobacco Use History Tobacco Use History - geotechnical intern: Tobacco Use History - geotechnical intern Tobacco Use Non-smoker 04/12/21 11:29 Smoking Status Never smoker 06/20/25 15:38 Hx Tobacco Use No 10/15/17 17:35 Years Smoking Packs Smoked per Day Smoking Cessation Date was within the last 15 years Hx Smoking Cessation Date Hx Smoking Cessation Counseling Hematologic Medial History Hematologic Hx - geotechnical intern: Hematologic Medical Hx - catalyst impregnator Hx of Blood Transfusion Hx of Transfusion in last 3 Months Date of Last Transfusion (if within last 3 months) Ever experience any problems with transfusion(s)? Specify any problems Hx of Preganancy in last 3 Months Nurse Filling Out Transfusion & Questions: Date: Time: Patient unable to answer at this time (ie. confused, unrespo /Reproduction History /Reproductive History - geotechnical intern: /Reproductive Hx- geotechnical intern Hx Now Gestational Age (in weeks): EDC: Hx Hx Para Hx Section SAB Does the father of the baby or his family experience fever w Father of the baby Malignant Hypertension history comment Active Medications Active Medications: Current Medications Generic Name Dose Route Start Last Admin Trade Name Freq PRN Reason Stop Dose Admin Sodium Chloride 1,000 mls @ 15 mls/hr 06/20/25 16:10 06/20/25 16:17 IV 15 mls/hr .Q48H MARIANNE Administration PFSH Medical History Benign essential hypertension CAD (coronary artery disease) Home Medications ?Medication ?Instructions ?Recorded ?Last Taken ?Type furosemide 20 mg tablet 20 mg PO BID 06/20/25 06/20/25 History Allergy/AdvReac Type Severity Reaction Status Date / Time No Known Allergies Allergy Verified 06/20/25 14:17 Family History no significant family his Surgical History History of quadruple bypass History of coronary artery stent placement Hx of CABG Social History (Updated 06/20/25 @ 15:[address] Kirk Espinosa MD) household members: spouse Smoking Status: Never smoker Review of Systems (Anesthesia) ROS Narrative System reviewed and no additional complaints, except as documented.
[2025-06-20] MEDS: Lidocaine 1% (5 ml sdv) 5 ML Vial IV (16:39)
[2025-06-20] MEDS: fentaNYL 100 MCG/2 ML Ampul IV (17:03)
--- NOTE | 2025-06-20 17:38 | PCM.OPRPT ---
Operative Report (Standard) Operative Information Date of Procedure: 06/20/25 Pre-Operative Diagnosis: Incarcerated right inguinal hernia Post-Operative Diagnosis: Incarcerated right inguinal hernia Surgery/Procedure Performed: Robotic assisted laparoscopic incarcerated right inguinal hernia repair with mesh snow removal/plowing: Yes Automotive Collision Repair Instructor: Penny Watson Tasks completed by senior sales assistant: Opening & closing Type of Anesthesia: General/Regional RN Documented Start/Stop Times: Operation Date: 06/20/25 16:00 Case Time Into Pre-Op 06/20/25 16:05 Anesthesia Start 06/20/25 16:30 Into Room 06/20/25 16:30 Procedure Start 06/20/25 16:52 Procedure Start Time: 16:52 Procedure Stop Time: 17:45 Select all DRAINS/GRAFTS/IMPLANTS that apply: Implanted device Implanted device details: ProGrip mesh Estimated Blood Loss: 10 Specimen collected: No Description of surgery: Patient was brought back to the operating room and general anesthesia was induced. A Galvez catheter was placed. The right inguinal hernia was reduced. Next the abdomen was prepped and draped in usual sterile fashion. A midline incision was made superior to the umbilicus and a Veress needle was placed into the abdomen and a drop test was performed. The abdomen was insufflated 15 mmHg. The Veress needle was removed. The port was placed into the abdomen and it was inspected for signs of injury from entry and there were none. Patient was placed in steep Trendelenburg position. The colon appeared viable with a serosal tear on one of the tenia. This was not full-thickness. Under direct visualization an 8 mm port was placed in the right lateral abdominal sidewall as well as the left lateral abdominal sidewall and then the robot was docked. Using a 3 oh V-Loc absorbable suture the serosal tear was repaired and imbricated. Next attention was paid to the right inguinal hernia. An incision was made in the peritoneum in the right lower quadrant and dissection was carried inferiorly until the hernia sac was encountered. The hernia sac was reduced from its adhesions circumferentially. Dissection was carried posteriorly. After dissection was performed a ProGrip mesh was placed in the right groin and completely unfolded covering the hernia well with good overlap. Next the peritoneum was reapproximated using a running 3 oh V-Loc suture. This completely covered the mesh with peritoneum. The colon was inspected once more and appeared to be viable and the suture line looks good. The abdomen was allowed to desufflate and the instruments and the ports were removed. The incisions were injected with local anesthetic and closed with interrupted 4-0 Monocryl sutures. Steri-Strips and bandages were applied. Galvez was removed at the end of the case. Surgical Findings: Incarcerated right inguinal hernia Complications Complications: No Admit VTE Documentation VTE Mechan Device Prophylaxis: SCD's
--- NOTE | 2025-06-20 18:02 | PCM.POST.ANE ---
Anesthesia: Postop Eval I Current Vital Signs Temperature: 97 F Pulse Rate: 62 Blood Pressure: 136/94 Respiratory Rate: 16 Pulse Ox: 100 Oxygen Delivery Method: Simple Mask Oxygen Flow Rate (L/min): 6 Assessment Airway patent: Yes Spontaneous unlabored respirations: Yes Mental status: Awake and Calm nausea: No Vomiting: No Anesthesia Complication: No Fluid Hydration Crystalloid volume administer (ml): 450 Total IV fluid infused: 450 Progress Note Anesthesia document: Postop Eval 1 completed: Yes
--- NOTE | 2025-06-20 18:47 | EKG12_ITS ---
Test Reason : ARRYTHMIA Blood Pressure : */* mmHG Vent. Rate : 60 BPM Atrial Rate : 60 BPM P-R Int : 224 ms QRS Dur : 104 ms QT Int : 470 ms P-R-T Axes : 70 74 143 degrees QTcB Int : 470 ms Sinus rhythm with 1st degree A-V block Left ventricular hypertrophy with repolarization abnormality ( [place] product ) Abnormal ECG When compared with ECG of 15-Oct-2017 17:23, [place] interval has increased QRS duration has increased Nonspecific T wave abnormality now evident in Inferior leads Confirmed by Kobi Farr ([id number]), deputy editor in chief MO METCALF ([id number]) on 06/21/2025 10:22:14 AM Referred By: RAFIQ Confirmed By: Kobi Farr
--- NOTE | 2025-06-20 19:00 | POSTOPAN2_ITS ---
Anesthesia Postop Eval I Sum Postop Eval Completion status Anesthesia document: Postop Eval 1 completed: Yes Anesthesia Postop Eval I Summary Anesthesia Postop Eval I Summary: Anesthesia Postop Eval I: Assessment Summary Airway patent Yes 06/20/25 18:03 TELECOMMUNICATIONS PROFESSIONAL.SKOBY Spontaneous unlabored Yes 06/20/25 18:03 TELECOMMUNICATIONS PROFESSIONAL.SKOBY respirations Mental status Awake,Calm 06/20/25 18:03 TELECOMMUNICATIONS PROFESSIONAL.SKOBY nausea No 06/20/25 18:03 TELECOMMUNICATIONS PROFESSIONAL.SKOBY Vomiting No 06/20/25 18:03 TELECOMMUNICATIONS PROFESSIONAL.SKOBY Anesthesia Postop Eval I: Fluid Summary Crystalloid volume administer 450 06/20/25 18:03 TELECOMMUNICATIONS PROFESSIONAL.SKOBY (ml) Colloids volume administered ( ml) Blood Product volume administered (ml) Total IV fluid infused 450 06/20/25 18:03 TELECOMMUNICATIONS PROFESSIONAL.SKOBY Anesthesia Postop Eval I: Summary Notes Anesthesia Complication No 06/20/25 18:03 TELECOMMUNICATIONS PROFESSIONAL.SKOBZuhair Anesthesia Complication Comment: Post-operative progress note Anesthesia: Postop Eval II Evaluation Mental status: Awake and Calm Pain Level: 2 nausea: No Vomiting: No Progress Note Post-operative progress note: Patient did have ST depressions on his telemetry. There seems to be some depressions in the lateral leads on the EKG from 2018. A repeat twelve-lead EKG was done today at 1847. This showed sinus rhythm with first-degree AV block. LVH. The ST depressions in the lateral leads are unchanged. Complications Anesthesia Complication: No
--- NOTE | 2025-06-20 19:00 | PCM.POSTANE2 ---
Anesthesia Postop Eval I Sum Postop Eval Completion status Anesthesia document: Postop Eval 1 completed: Yes Anesthesia Postop Eval I Summary Anesthesia Postop Eval I Summary: Anesthesia Postop Eval I: Assessment Summary Airway patent Yes 06/20/25 18:03 BLACK POWDER GLAZING OPERATOR.SKOBY Spontaneous unlabored Yes 06/20/25 18:03 BLACK POWDER GLAZING OPERATOR.SKOBY respirations Mental status Awake,Calm 06/20/25 18:03 BLACK POWDER GLAZING OPERATOR.SKOBY nausea No 06/20/25 18:03 BLACK POWDER GLAZING OPERATOR.SKOBY Vomiting No 06/20/25 18:03 BLACK POWDER GLAZING OPERATOR.SKOBY Anesthesia Postop Eval I: Fluid Summary Crystalloid volume administer 450 06/20/25 18:03 BLACK POWDER GLAZING OPERATOR.SKOBY (ml) Colloids volume administered ( ml) Blood Product volume administered (ml) Total IV fluid infused 450 06/20/25 18:03 BLACK POWDER GLAZING OPERATOR.SKOBY Anesthesia Postop Eval I: Summary Notes Anesthesia Complication No 06/20/25 18:03 BLACK POWDER GLAZING OPERATOR.SKOBZuhair Anesthesia Complication Comment: Post-operative progress note Anesthesia: Postop Eval II Evaluation Mental status: Awake and Calm Pain Level: 2 nausea: No Vomiting: No Progress Note Post-operative progress note: Patient did have ST depressions on his telemetry. There seems to be some depressions in the lateral leads on the EKG from 2018. A repeat twelve-lead EKG was done today at 1847. This showed sinus rhythm with first-degree AV block. LVH. The ST depressions in the lateral leads are unchanged. Complications Anesthesia Complication: No
[2025-06-20] MEDS: 0.9% Normal Saline (1000mL) 1,000 ML 60 ML IV (21:21)
[2025-06-20] MEDS: 0.9% Saline Lock 10 ML Syringe IV (21:25)
[2025-06-21] VITALS (9 sets, daily range): BP systolic 108–127; BP diastolic 56–78; PULSE 60–70; RESP 16–18; TEMP 36.5–36.7; O2SAT 95–100
[2025-06-21 07:27] LABS: Hematocrit 40.3 % (40-54); Hemoglobin 13.0 g/dL (13.0-16.5); Immature Granulocytes Count 0.040 X10^3/uL (0.0-0.0); Mean Corp Hgb Conc 32.3 g/dL (32-36); Mean Corpuscular Volume 95.5 fL (80-94); Mean Platelet Vol. 11.7 fl (6.2-12.0); NRBC Flagged by Analyzer 0 % (0-5); POSITIVE DIFFERENTIAL YES; Platelet Count 114 K/mm3 (150-450); RBC Distribution Width CV 14.9 % (11.6-14.6); RBC Distribution Width SD 52.5 fl (35.1-43.9); Red Blood Count 4.22 M/mm3 (4.6-6.2); White Blood Count 10.3 K/mm3 (4.4-11.0)
--- NOTE | 2025-06-21 07:35 | PCM.PN.SRG ---
Subjective Subjective Patient reports feeling well. He is not having any abdominal or groin pain. He reports he is passing some gas. No nausea or vomiting. Objective Data Objective Data Vital Signs: Vital Signs Temp Pulse Resp BP Pulse Ox O2 Del Method O2 Flow Rate 97.7 F L 62 18 108/73 95 Room Air 6 06/21/25 06:00 06/21/25 06:00 06/21/25 06:00 06/21/25 06:00 06/21/25 06:00 06/21/25 06:00 06/20/25 18:03 Oxygen Flow Rate (L/min) 6 Oxygen Delivery Method Room Air Weight: 168 lb Body Mass Index (BMI) 29.7 Intake & Output: Intake and Output for Last 24 Hours 06/19/25 06/20/25 06/21/25 23:59 23:59 23:59 Intake Total 165 / 165 Output Total 360 / 460 125 / 125 Balance -195 / -295 -125 / -125 Lab / Micro Data 06/21/25 06:25 06/20/25 14:45 Labs: Laboratory Results - last 24 hr 06/20/25 14:45: WBC 4.8, RBC 4.48 L, Hgb 13.6, Hct 42.7, MCV 95.3 H, MCH 30.4, MCHC 31.9 L, RDW Std Deviation 51.3 H, RDW Coeff of Rc 14.7 H, Plt Count 117 L, MPV 11.5, Immature Gran % (Auto) 0.200, Neut % (Auto) 70.0, Lymph % (Auto) 17.4 L, [place] % (Auto) 10.3 H, Eos % (Auto) 1.3, Baso % (Auto) 0.8, Absolute Neuts (auto) 3.3, Absolute Lymphs (auto) 0.83, Nucleated RBC % 0, Sodium 139, Potassium 4.6, Chloride 102, Carbon Dioxide 28.2, Anion Gap 9, BUN 32 H, Creatinine 1.78 H, Estim Creat Clear Calc 31.72 L, Est GFR (MDRD) Non-Af 39 L, BUN/Creatinine Ratio 17.9, Glucose 129 H, Calcium 9.3, Total Bilirubin 0.42, AST 28, ALT 22, Alkaline Phosphatase 76, Total Protein 7.1, Albumin 4.0, Globulin 3.1, Albumin/Globulin Ratio 1.3 12/17/25 15:30: Lactic Acid 1.6 06/21/25 06:25: WBC 10.3, RBC 4.22 L, Hgb 13.0, Hct 40.3, MCV 95.5 H, MCH 30.8, MCHC 32.3, RDW Std Deviation 52.5 H, RDW Coeff of Rc 14.9 H, Plt Count 114 L, MPV 11.7, Immature Gran % (Auto) 0.400, Neut % (Auto) 90.7 H, Lymph % (Auto) 4.2 L, [place] % (Auto) 4.6, Eos % (Auto) 0.0, Baso % (Auto) 0.1, Absolute Neuts (auto) 9.3 H, Absolute Lymphs (auto) 0.43 L, Nucleated RBC % 0 Physical Exam Const oriented x3 and no apparent distress Resp normal respiratory effort GI soft to palpation and non-tender Assessment & Plan Assessment/Plan (1) Incarcerated right inguinal hernia: PLAN: Patient had incarcerated right inguinal hernia repaired yesterday. He is doing well this morning and reports that he is passing some gas. He did have a serosal tear that had to be repaired on the cecum. I will start his diet slowly and start with clears today. Hopeful for discharge maybe tomorrow. Darnell Donaldson MD Pager: [facility] [address] [place] [address], [address] [place] [address] Office:
--- NOTE | 2025-06-21 07:37 | DS.PCM_ITS ---
Providers Date of Admission: 06/20/25 Primary Care Physician: Dr. Guillaume Aparicio MD Reason For Visit: INCARCERATED INGUINAL HERNIA Diagnosis Discharge Diagnosis (1) Incarcerated right inguinal hernia: Status: Acute Code(s): K40.30 - Unilateral inguinal hernia, with obstruction, without gangrene, not specified as recurrent Plan: Patient had incarcerated right inguinal hernia repaired yesterday. He is doing well this morning and reports that he is passing some gas. He did have a serosal tear that had to be repaired on the cecum. I will start his diet slowly and start with clears today. Hopeful for discharge maybe tomorrow. Darnell Donaldson MD Pager: [facility] [address] [place] [address], [address] [place] [address] Office: Medications at Discharge Home Medications furosemide 20 mg tablet 20 mg PO BID 06/20/25 ropinirole 2 mg tablet 2 mg PO QHS restless leg 06/20/25 oxycodone 5 mg tablet 5 - 10 mg (1 - 2 x 5 mg) PO Q6H PRN pain 5 days #10 tabs 06/21/25 Hospital Course Operations herniorrhaphy Procedures None Summary of Care Provided Hospital Course: The patient presented to the emergency room with an incarcerated right inguinal hernia which was very painful. Immediately after presentation he was taken for surgery and underwent a laparoscopic right inguinal hernia repair with mesh. Patient was doing well the following morning and started on clears. Once his diet is advanced he will be discharged home. Weight / BMI Weight Weight: 168 lb Body Mass Index (BMI) 29.7 ABG / Lab / Microbiology Data 06/21/25 06:25 06/20/25 14:45 Laboratory: Laboratory Results - last 24 hr 06/20/25 14:45: WBC 4.8, RBC 4.48 L, Hgb 13.6, Hct 42.7, MCV 95.3 H, MCH 30.4, M CHC 31.9 L, RDW Std Deviation 51.3 H, RDW Coeff of Rc 14.7 H, Plt Count 117 L, MPV 11.5, Immature Gran % (Auto) 0.200, Neut % (Auto) 70.0, Lymph % (Auto) 17.4 L, [place] % (Auto) 10.3 H, Eos % (Auto) 1.3, Baso % (Auto) 0.8, Absolute Neuts (auto) 3.3, Absolute Lymphs (auto) 0.83, Nucleated RBC % 0, Sodium 139, Potassium 4.6, Chloride 102, Carbon Dioxide 28.2, Anion Gap 9, BUN 32 H, C reatinine 1.78 H, Estim Creat Clear Calc 31.72 L, Est GFR (MDRD) Non-Af 39 L, BUN/Creatinine Ratio 17.9, Glucose 129 H, Calcium 9.3, Total Bilirubin 0.42, AST 28, ALT 22, Alkaline Phosphatase 76, Total Protein 7.1, Albumin 4.0, Globulin 3.1, Albumin/Globulin Ratio 1.3 06/20/25 15:30: Lactic Acid 1.6 06/21/25 06:25: WBC 10.3, RBC 4.22 L, Hgb 13.0, Hct 40.3, MCV 95.5 H, MCH 30.8, MCHC 32.3, RDW Std Deviation 52.5 H, RDW Coeff of Rc 14.9 H, Plt Count 114 L, MPV 11.7, Immature Gran % (Auto) 0.400, Neut % (Auto) 90.7 H, Lymph % (Auto) 4.2 L, [place] % (Auto) 4.6, Eos % (Auto) 0.0, Baso % (Auto) 0.1, Absolute Neuts (auto) 9.3 H, Absolute Lymphs (auto) 0.43 L, Nucleated RBC % 0 D/C Instructions Discharge Activity: May Not Drive (for 2-3 days or while taking narcotic pain meds.) and May Shower (with the bandage in place 1-2 days after surgery.) Lifting Restrictions: 20 pounds for 4 weeks. Additional Activity Instructions: Climbing stairs is fine, walking is encouraged. Sitting in bed may be uncomfortable. Sitting up using your lateral muscles (sitting up sideways) is usually more comfortable. Do not drive, work heavy equipment of sign legal documents for 24 hours. If your hernia repair was an ingunial repair, you may have scrotal swelling, an ice pack and/or athletic support can provide more comfort. Pain medications may cause nausea, you should typically eat light foods as you take your pain medications. Pain medications may also cause constipation. If you have difficulty with this, discuss with your doctor. Alternate ibuprofen and Tylenol for pain control, oxycodone for breakthrough pain Call your doctor if your incision/area has: Continuous Slow Oozing, Sudden Increased Bleeding, Increased Pain/ Swelling, Increased Redness and Foul Smelling Discharge Call your doctor if you observe: Fever of 101 or Higher Suture Line Care: Avoid Pulling/Pushing and Avoid Pinching/Bending Remove Dressing in: 2 days (Remove clear bandages in 2 days, remove Steri-Strips in 7 to 10 days.) DC O2, CPAP, BIPAP Needs Home O2 Discharge instructions: No Please Follow Up With: Darnell Donaldson MD When: Please call to schedule 2 week follow up appointment. [phone] Patient's Goals Of Care - F/U Goal Hisotry Goal History: Patient's Goals of Care History 3 What would you like to achieve no 06/20/25 16:11 or improve as a result of you Meaningful Use Info Meaningful Use Meaningful Use Diagnoses (Choose all that apply): CHF CHF OLEG/ARB ordered at discharge?: Yes Documented LVEF (%): 30 Discharge Plan Admission Admit Date/Time: 06/20/25 17:42 Attending Provider: Darnell Donaldson Primary Care Provider: Guillaume Aparicio Discharge Orders/Prescriptions Prescriptions: New oxycodone 5 mg tablet 5 - 10 mg PO Q6H PRN (Reason: pain) 5 Days Qty: 10 0RF Continued furosemide 20 mg tablet 20 mg PO BID ropinirole 2 mg tablet 2 mg PO QHS Referrals / Follow Up: Guillaume Aparicio MD [Primary Care Provider, Family Practice] Disposition Disposition (needs filled in before D/C Order can be placed): Home, Self Care
[2025-06-21 07:45] LABS: Anion Gap 10 (5-15); BUN 29 mg/dL (4-19); BUN/Creat Ratio 17.4 RATIO (10-20); Calcium,Total 9.1 mg/dL (7.6-11.0); Carbon Dioxide 23.2 mmol/L (21.0-32.0); Chloride 105 mmol/L (98-108); Estimated Creatinine Clearance 33.66 ml/min (50-250); Glucose 136 mg/dL (70-99); Potassium 5.4 mmol/L (3.3-5.1)
[2025-06-21] MEDS: 0.9% Normal Saline (1000mL) 1,000 ML 60 ML IV (09:38)
--- NOTE | 2025-06-21 12:54 | CASEMGMT ---
HANNAH WILKINS Assessment Face to Face with patient for initial transition planning/care coordination assessment. HANNAH WILKINS introduced self and role at [facility], pt voices understanding. Pt is A&Ox4 and is resting comfortably in bed and is calm. Pt's at the bedside. Care providers, pharmacy, and demographics verified. Admitting dx: Incarcerated Inguinal Hernia PCP: Tiffany Specialists: Cardio through [facility] but cannot recall the name Preferred Pharmacy: [facility] Insurance: Jonathan JIMENEZ Dual Adv., EDY Prescription Benefit: Yes LNOK: Allyssa (W), Judy (Dtr) Living Arrangements: Pt lives with his in a ground level duplex with 5 steps to enter ADLs/IADLs: Indep. Pt denies needs or concerns Transportation: Self, Dtr DME: [facility]. Denies needs HHC/SNF: Denies hx of or needs Pt?s goal: Home Plan: Home, no additional needs identified at this time. Pt states that he feels safe returning home with his once medically ready and denies the need for HH, OP Tx, or any other additional therapy or resources. Pt denies further questions or concerns at this time. Shelby Kelly RN, CM
[2025-06-22 03:00] VITALS: BP 123/92; PULSE 64; RESP 18; TEMP 36.4; O2SAT 100
[2025-06-22] MEDS: 0.9% Normal Saline (1000mL) 1,000 ML 60 ML IV (06:00)
--- NOTE | 2025-06-22 06:54 | PCM.PN.SRG ---
Subjective Subjective Patient seen and evaluated on rounds this morning. He denies any issues or problems. He states that he is passing flatus and tolerating a liquid diet. Objective Data Objective Data Vital Signs: Vital Signs Temp Pulse Resp BP Pulse Ox O2 Del Method O2 Flow Rate 97.5 F L 64 18 123/92 H 100 Room Air 6 06/22/25 03:00 06/22/25 03:00 06/22/25 03:00 06/22/25 03:00 06/22/25 03:00 06/22/25 03:00 06/20/25 18:03 Oxygen Flow Rate (L/min) 6 Oxygen Delivery Method Room Air Weight: 168 lb Body Mass Index (BMI) 29.7 Intake & Output: Intake and Output for Last 24 Hours 06/20/25 06/21/25 06/22/25 23:59 23:59 23:59 Intake Total 165 / 165 1377 / 1577 1200 / 1200 Output Total 360 / 460 477 / 702 225 / 225 Balance -195 / -295 900 / 875 975 / 975 Lab / Micro Data 06/21/25 06:25 06/21/25 06:25 Labs: Laboratory Results - last 24 hr 06/21/25 06:25: WBC 10.3, RBC 4.22 L, Hgb 13.0, Hct 40.3, MCV 95.5 H, MCH 30.8, MCHC 32.3, RDW Std Deviation 52.5 H, RDW Coeff of Rc 14.9 H, Plt Count 114 L, MPV 11.7, Immature Gran % (Auto) 0.400, Neut % (Auto) 90.7 H, Lymph % (Auto) 4.2 L, [place] % (Auto) 4.6, Eos % (Auto) 0.0, Baso % (Auto) 0.1, Absolute Neuts (auto) 9.3 H, Absolute Lymphs (auto) 0.43 L, Nucleated RBC % 0, Sodium 139, Potassium 5.4 H, Chloride 105, Carbon Dioxide 23.2, Anion Gap 10, BUN 29 H, Creatinine 1.68 H, Estim Creat Clear Calc 33.66 L, Est GFR (MDRD) Non-Af 42 L, BUN/Creatinine Ratio 17.4, Glucose 136 H, Calcium 9.1 Physical Exam Narrative He is alert and oriented x 3. He is in no acute distress. Abdomen is soft and nondistended. Appropriate incisional tenderness Assessment & Plan Assessment/Plan (1) Incarcerated right inguinal hernia: PLAN: Plan The patient is a 79-year-old male status post repair of an incarcerated right inguinal hernia. He did have a small serosal tear which was repaired. Clinically he is doing well and has been tolerating a clear liquid diet. Will advance diet to a transitional diet today Possible discharge to home later today
[2025-06-22 07:08] LABS: Hematocrit 42.2 % (40-54); Hemoglobin 13.4 g/dL (13.0-16.5); Immature Granulocytes Count 0.040 X10^3/uL (0.0-0.0); Mean Corp Hgb Conc 31.8 g/dL (32-36); Mean Corpuscular Volume 95.5 fL (80-94); Mean Platelet Vol. 11.9 fl (6.2-12.0); NRBC Flagged by Analyzer 0 % (0-5); Platelet Count 114 K/mm3 (150-450); RBC Distribution Width CV 14.7 % (11.6-14.6); RBC Distribution Width SD 51.8 fl (35.1-43.9); Red Blood Count 4.42 M/mm3 (4.6-6.2); White Blood Count 10.3 K/mm3 (4.4-11.0)
[2025-06-22 07:36] LABS: Anion Gap 10 (5-15); BUN 29 mg/dL (4-19); BUN/Creat Ratio 17.1 RATIO (10-20); Calcium,Total 9.2 mg/dL (7.6-11.0); Carbon Dioxide 24.5 mmol/L (21.0-32.0); Chloride 101 mmol/L (98-108); Estimated Creatinine Clearance 33.86 ml/min (50-250); Glucose 98 mg/dL (70-99); Potassium 4.6 mmol/L (3.3-5.1)
[2025-06-22 08:00] VITALS: BP 115/82; PULSE 63; RESP 18; TEMP 36.4; O2SAT 98
[2025-06-22 14:16] VITALS: BP 115/82; PULSE 63; RESP 18; TEMP 36.4; O2SAT 98
--- NOTE | 2025-06-22 14:37 | CASEMGMT ---
Patient has order for discharge. RN CM in to discuss needs at discharge. Patient denies needs or help at discharge. Patient had no further questions or concerns.
== END 2025-06-22 14:46 | disposition home or self-care (01) | DRG 351 ==
LOC: ED 15:56 → SDC 16:06 → ACINP 16:07 → SDC 19:17 → PCU 19:17
PROVIDERS: Admitting Provider Surgery; Emergency Provider Emergency Medicine; PCP Family Medicine; Visit Provider Surgery
PROC: 0YU54JZ Supplement Right Inguinal Region with Synthetic Substitute, Percutaneous Endoscopic Approach (ICD-10-PCS; principal; 2025-06-20 15:40)
DX: K40.30 Unilateral inguinal hernia, with obstruction, without gangrene, not specified as recurrent (principal); I50.22 Chronic systolic (congestive) heart failure; I11.0 Hypertensive heart disease with heart failure; I25.10 Atherosclerotic heart disease of native coronary artery without angina pectoris; I25.2 Old myocardial infarction; Z95.1 Presence of aortocoronary bypass graft; Z95.5 Presence of coronary angioplasty implant and graft; Z79.899 Other long term (current) drug therapy
CPT/HCPCS: 36415; 80048; 80053; 83605; 85025; 93005; 94668; 99285; C1781; A4216; J2405